=== PATIENT | female | born 1990 | race Two or more races ===

== ENCOUNTER 2025-04-05 13:18 | Emergency (ER) | payer OTHER ==
[~2025-04-05] VITALS: Ht 162.6 cm; Wt 83.9 kg
[2025-04-05 13:35] VITALS: BP 139/84; TEMP 99
[2025-04-05] MEDS ORDERED: BENZ1LOZ58 PO (14:20)
[2025-04-05] MEDS ORDERED: CETI-90 PO (14:20)
[2025-04-05] MEDS ORDERED: BENZ-13 PO (14:20)
[2025-04-05] MEDS ORDERED: FLUT16SP16 BNOSTRILS (14:20)
[2025-04-05] MEDS ORDERED: ALBU6.7H9 INH (14:38)
[2025-04-05 14:41] VITALS: O2SAT 99
== END 2025-04-05 14:41 | disposition home or self-care (01) ==
LOC: ER 13:37
DX: J06.9 Acute upper respiratory infection, unspecified (principal); R03.0 Elevated blood-pressure reading, without diagnosis of hypertension; F17.290 Nicotine dependence, other tobacco product, uncomplicated; Z76.0 Encounter for issue of repeat prescription; Z20.822 Contact with and (suspected) exposure to COVID-19
CPT/HCPCS: 86403-TC; 87070-TC